=== PATIENT | male | born 1985 | race Caucasian/White ===

== ENCOUNTER 2017-03-18 23:45 | Emergency (ER) | payer OTHER | END 2017-03-19 02:15 | disposition home or self-care (01) | LOC: D.ER 23:45 → EDBD 23:45 → D.ER 03-19 02:15 | DX: S93.402A Sprain of unspecified ligament of left ankle, initial encounter (principal); X58.XXXA Exposure to other specified factors, initial encounter; Y93.89 Activity, other specified; Y92.89 Other specified places as the place of occurrence of the external cause ==